=== PATIENT | female | born 1985 | race African-American/Black ===

== ENCOUNTER 2017-10-19 09:15 | Emergency (ER) | payer SELFPAY ==
[~2017-10-19] VITALS: Ht 160 cm; Wt 149.5 kg
[~2017-10-19 09:15] MED LIST: BACTRIM DS1 TAB PO; LORTAB 5/3255 MG PO
[2017-10-19] MEDS ORDERED: DOXYCYCL HYC100 MG PO (10:24)
[2017-10-19 10:39] VITALS: BP 132/83
== END 2017-10-19 10:40 | disposition home or self-care (01) | DRG 603 ==
LOC: ED 09:15
DX: L03.012 Cellulitis of left finger (principal); F17.290 Nicotine dependence, other tobacco product, uncomplicated

== ENCOUNTER 2018-03-19 11:06 | Emergency (ER) | payer SELFPAY ==
[~2018-03-19] VITALS: Ht 160 cm; Wt 153.6 kg
[~2018-03-19 11:06] MED LIST changes: +DOXYCYCL HYC100 MG PO
[2018-03-19] MEDS ORDERED: DOXYCYC MONO100 M2 PO (11:33)
[2018-03-19 12:04] VITALS: BP 154/93
== END 2018-03-19 12:12 | disposition home or self-care (01) | DRG 153 ==
LOC: ED 11:06
DX: J06.9 Acute upper respiratory infection, unspecified (principal); R05 Cough; R09.81 Nasal congestion; F17.290 Nicotine dependence, other tobacco product, uncomplicated; R53.83 Other fatigue

== ENCOUNTER 2020-02-12 12:05 | Emergency (ER) | payer SELFPAY ==
[~2020-02-12] VITALS: Ht 160 cm; Wt 136.0 kg
[~2020-02-12 12:05] MED LIST changes: +DOXYCYC MONO100 M2 PO
[2020-02-12 13:21] LABS: HEMATOCRIT 38.4 % (37.0-47.0); HEMOGLOBIN 12.1 g/dl (12.0-16.0); IMMATURE GRANULOCYTES 0.3 % (0.0-5.0); MEAN CELL VOLUME 91.4 fL CALC (80.0-100.0); MEAN CORPUSCULAR HGB 28.8 pG CALC (26.0-32.0); MEAN CORPUSCULAR HGB CONC 31.5 g/dL CAL (32.0-36.0); NEUT# 4.96 thou/uL (2.00-7.15); RED BLOOD COUNT 4.2 mill/uL (4.20-5.60); RED CELL DISTRI WIDTH 14.2 % (11.5-15.5)
[2020-02-12 13:34] LABS: HCG SERUM/URINE (NEG/POS) NEGATIVE (NEGATIVE)
[2020-02-12 13:38] LABS: ALBUMIN 4.1 g/dL (3.2-5.0); ALKALINE PHOSPHATASE 71 u/l (38-126); ANION GAP 13 (6-22 (CALC)); BILIRUBIN, TOTAL 0.4 mg/dL (0.0-1.4); BUN 10 mg/dL (7-17); BUN/CREATININE RATIO 13 (12-20 (CALC)); CARBON DIOXIDE 23 mmol/l (22-30); CHLORIDE 111 mmol/l (95-108); CREATININE 0.8 mg/dL (0.5-1.0); GFR > 60 ML/MIN (>=60 (CALC)); GFR FOR AFR.AMER. > 60 ML/MIN (>=60 (CALC)); LIPASE 64 u/l (23-300); SGOT/AST 29 u/l (14-36); SODIUM 143 mmol/l (137-146); TOTAL PROTEIN 7.9 g/dL (6.3-8.2)
[2020-02-12] MEDS ORDERED: ALBUTEROL108 MCG/AC IN (13:42)
[2020-02-12 16:59] LABS: URINE BILIRUBIN - DIPSTICK NEGATIVE (NEGATIVE); URINE BLOOD DIPSTICK NEGATIVE (NEGATIVE); URINE COLOR YELLOW; URINE GLUCOSE - DIPSTICK NEGATIVE (NEGATIVE); URINE KETONE NEGATIVE (NEGATIVE); URINE LEUK ESTERASE NEGATIVE (NEGATIVE); URINE NITRITE - DIPSTICK NEGATIVE (Negative); URINE PROTEIN - DIPSTICK NEGATIVE (NEG-TRACE); URINE UROBILINOGEN - DIPSTICK 0.2 E.U./dL (0.2)
[2020-02-12] MEDS ORDERED: ALBUTEROL SUL0.083 % IN (17:43)
[2020-02-12] MEDS ORDERED: NEBULIZE2 XX (17:43)
[2020-02-12 18:05] VITALS: BP 137/66
== END 2020-02-12 18:11 | disposition home or self-care (01) | DRG 313 ==
LOC: ED 12:05
PROVIDERS: Family Medicine
DX: R07.89 Other chest pain (principal); J45.909 Unspecified asthma, uncomplicated; F17.200 Nicotine dependence, unspecified, uncomplicated; Z20.828 Contact with and (suspected) exposure to other viral communicable diseases

== ENCOUNTER 2020-03-26 18:50 | Emergency (ER) | payer SELFPAY ==
[~2020-03-26] VITALS: Ht 160 cm; Wt 131.0 kg
[~2020-03-26 18:50] MED LIST changes: +ALBUTEROL SUL0.083 % IN; +ALBUTEROL108 MCG/AC IN; +NEBULIZE2 XX
[2020-03-26] MEDS ORDERED: LISINOPRIL20 MG PO ×2 (20:07→20:19)
[2020-03-26] MEDS ORDERED: PAROXETINE20 MG PO (20:19)
[2020-03-26 20:57] VITALS: BP 116/65
== END 2020-03-26 21:01 | disposition home or self-care (01) | DRG 881 ==
LOC: ED 18:50
DX: F32.9 Major depressive disorder, single episode, unspecified (principal); I10 Essential (primary) hypertension; J45.909 Unspecified asthma, uncomplicated; F41.9 Anxiety disorder, unspecified; F17.200 Nicotine dependence, unspecified, uncomplicated; Z63.4 Disappearance and death of family member

== ENCOUNTER 2020-11-12 10:49 | Emergency (ER) | payer SELFPAY ==
[~2020-11-12 10:49] MED LIST changes: +LISINOPRIL20 MG PO; +PAROXETINE20 MG PO
[2020-11-12] MEDS ORDERED: AFRIN NASAL SP0.05 % NAB (12:41)
[2020-11-12] MEDS ORDERED: TESSALON PERLE100 MG PO (12:41)
[2020-11-12 12:48] VITALS: BP 160/77
== END 2020-11-12 12:54 | disposition home or self-care (01) | DRG 153 ==
LOC: ED 10:49
DX: J06.9 Acute upper respiratory infection, unspecified (principal); I10 Essential (primary) hypertension; J45.909 Unspecified asthma, uncomplicated; F41.9 Anxiety disorder, unspecified; F17.210 Nicotine dependence, cigarettes, uncomplicated; Z20.822 Contact with and (suspected) exposure to COVID-19

== ENCOUNTER 2021-04-25 09:29 | Emergency (ER) | payer SELFPAY ==
[~2021-04-25] VITALS: Ht 160 cm; Wt 131.0 kg
[~2021-04-25 09:29] MED LIST changes: +AFRIN NASAL SP0.05 % NAB; +TESSALON PERLE100 MG PO
[2021-04-25] MEDS ORDERED: HYDROCO/APAP1 TA9 PO (10:40)
[2021-04-25] MEDS ORDERED: CLEOCIN300 MG PO (10:40)
[2021-04-25 10:55] VITALS: BP 184/80
== END 2021-04-25 10:55 | disposition home or self-care (01) | DRG 159 ==
LOC: ED 09:29
DX: K04.7 Periapical abscess without sinus (principal); K02.9 Dental caries, unspecified; I10 Essential (primary) hypertension; J45.909 Unspecified asthma, uncomplicated; F41.9 Anxiety disorder, unspecified; F17.200 Nicotine dependence, unspecified, uncomplicated

== ENCOUNTER 2021-08-06 18:37 | Emergency (ER) | payer SELFPAY ==
[~2021-08-06] VITALS: Ht 160 cm; Wt 300.0 kg
[~2021-08-06 18:37] MED LIST changes: +CLEOCIN300 MG PO; +HYDROCO/APAP1 TA9 PO
[2021-08-06 19:20] VITALS: BP 171/105
[2021-08-06] MEDS ORDERED: NAPROXEN500 MG PO (19:51)
[2021-08-06] MEDS ORDERED: PREDNISONE20 MG PO (19:51)
[2021-08-06 20:15] VITALS: BP 171/105
== END 2021-08-06 20:15 | disposition home or self-care (01) | DRG 556 ==
LOC: ED 18:37
DX: M25.572 Pain in left ankle and joints of left foot (principal); I10 Essential (primary) hypertension; J45.909 Unspecified asthma, uncomplicated; F41.9 Anxiety disorder, unspecified; F17.200 Nicotine dependence, unspecified, uncomplicated

== ENCOUNTER 2021-11-22 11:57 | Emergency (ER) | payer SELFPAY ==
[~2021-11-22] VITALS: Ht 160 cm; Wt 136.4 kg
[~2021-11-22 11:57] MED LIST changes: +NAPROXEN500 MG PO; +PREDNISONE20 MG PO
[2021-11-22 12:04] VITALS: BP 171/102
[2021-11-22 13:19] LABS: HEMATOCRIT 37.7 % (37.0-47.0); HEMOGLOBIN 12.2 g/dl (12.0-16.0); IMMATURE GRANULOCYTES 0.3 % (0.0-5.0); MEAN CORPUSCULAR HGB 29.1 pG CALC (26.0-32.0); MEAN CORPUSCULAR HGB CONC 32.4 g/dL CAL (32.0-36.0); NEUT# 3.76 thou/uL (2.00-7.15); RED BLOOD COUNT 4.19 mill/uL (4.20-5.60); RED CELL DISTRI WIDTH 14.7 % (11.5-15.5)
[2021-11-22 13:33] LABS: ALBUMIN 4.1 g/dL (3.2-5.0); ALKALINE PHOSPHATASE 83 u/l (38-126); ANION GAP 12 (6-22 (CALC)); BUN 16 mg/dL (7-17); BUN/CREATININE RATIO 26 (12-20 (CALC)); CARBON DIOXIDE 25 mmol/l (22-30); CHLORIDE 106 mmol/l (95-108); CREATININE 0.6 mg/dL (0.5-1.0); GFR FOR AFR.AMER. > 60 ML/MIN (>=60 (CALC)); GFR OTHER RACES > 60 ML/MIN (>=60 (CALC)); POTASSIUM 4.1 mmol/l (3.5-5.1); SGOT/AST 27 u/l (14-36); SODIUM 139 mmol/l (137-146); TOTAL PROTEIN 7.7 g/dL (6.3-8.2)
[2021-11-22 13:34] LABS: BILIRUBIN, TOTAL 0.2 mg/dL (0.0-1.4)
[2021-11-22] MEDS ORDERED: IBUPROFEN600 MG PO (13:54)
[2021-11-22] MEDS ORDERED: ALL DAY10 MG PO (13:54)
[2021-11-22] MEDS ORDERED: PREDNISONE20 MG PO (13:54)
[2021-11-22 13:59] VITALS: BP 171/102
== END 2021-11-22 14:09 | disposition home or self-care (01) | DRG 916 ==
LOC: ED 11:57
PROVIDERS: Family Medicine
DX: T78.49XA Other allergy, initial encounter (principal)

== ENCOUNTER 2022-01-22 15:53 | Emergency (ER) | payer SELFPAY ==
[~2022-01-22] VITALS: Ht 160 cm; Wt 90.9 kg
[~2022-01-22 15:53] MED LIST changes: +ALL DAY10 MG PO; +IBUPROFEN600 MG PO
[2022-01-22 16:31] VITALS: BP 216/100
[2022-01-22 17:00] VITALS: BP 174/101
[2022-01-22] MEDS ORDERED: NAPROXEN500 MG PO (17:46)
[2022-01-22] MEDS ORDERED: COLCHICINE0.6 M2 PO (17:46)
[2022-01-22] MEDS ORDERED: MEDDOSEPAK PO (17:46)
[2022-01-22 18:30] VITALS: BP 174/101
== END 2022-01-22 18:18 | disposition home or self-care (01) | DRG 554 ==
LOC: ED 15:53
DX: M10.9 Gout, unspecified (principal)

== ENCOUNTER 2023-11-20 13:00 | Emergency (ER) | payer SELFPAY ==
[~2023-11-20] VITALS: Ht 160 cm; Wt 136.0 kg
[~2023-11-20 13:00] MED LIST changes: +COLCHICINE0.6 M2 PO; +MEDDOSEPAK PO
[2023-11-20 13:07] VITALS: BP 174/104
[2023-11-20 13:09] VITALS: BP 174/104
[2023-11-20] MEDS ORDERED: MOTRIN800 MG PO (13:10)
[2023-11-20] MEDS ORDERED: HYDROcodone 5 MG/Acetaminophen 325 MG/COMBO PO ONE (13:10)
[2023-11-20] MEDS ORDERED: TRAMADOL HYDROC50 M1 PO (13:10)
[2023-11-20] MEDS ORDERED: AMOX/K CLAV875 M1 PO (13:10)
[2023-11-20] MEDS ORDERED: [UNRECOGNIZED DRUG - OTHER] PO (13:14)
[2023-11-20 13:15] VITALS: BP 161/100
== END 2023-11-20 13:20 | disposition home or self-care (01) | DRG 159 ==
LOC: ED 13:00
DX: K04.7 Periapical abscess without sinus (principal); K02.9 Dental caries, unspecified; S02.5XXA Fracture of tooth (traumatic), initial encounter for closed fracture; I10 Essential (primary) hypertension; J45.909 Unspecified asthma, uncomplicated; F41.9 Anxiety disorder, unspecified; F17.200 Nicotine dependence, unspecified, uncomplicated; X58.XXXA Exposure to other specified factors, initial encounter

== ENCOUNTER 2023-11-27 10:50 | Emergency (ER) | payer SELFPAY ==
[2023-11-27] VITALS (7 sets, daily range): BP systolic 135–184; BP diastolic 70–104
[~2023-11-27] VITALS: Ht 160 cm; Wt 136.0 kg
[~2023-11-27 10:50] MED LIST changes: +AMOX/K CLAV875 M1 PO; +MOTRIN800 MG PO; +TRAMADOL HYDROC50 M1 PO; +[UNRECOGNIZED DRUG - OTHER] PO
[2023-11-27 11:20] LABS: BASO% 0.4 % (0-3); EOS% 3.8 % (0-8); HEMATOCRIT 37.7 % (37.0-47.0); HEMOGLOBIN 11.8 g/dl (12.0-16.0); IMMATURE GRANULOCYTES 0.3 % (0.0-5.0); LYMPH% 32.2 % (15-41); MEAN CORPUSCULAR HGB 29.7 pG CALC (26.0-32.0); MEAN CORPUSCULAR HGB CONC 31.3 g/dL CAL (32.0-36.0); MONO% 4.5 % (2-13); NEUT# 5.35 thou/uL (2.00-7.15); NEUT% 58.8 % (42-76); RED BLOOD COUNT 3.97 mill/uL (4.20-5.60)
[2023-11-27 11:36] LABS: ALBUMIN 4.3 g/dL (3.2-5.0); BILIRUBIN, TOTAL 0.4 mg/dL (0.02-1.3); CREATININE 0.7 mg/dL (0.5-1.0); POTASSIUM 3.3 mmol/l (3.5-5.1); TOTAL PROTEIN 8.1 g/dL (6.3-8.2)
[2023-11-27] MEDS ORDERED: ZPAK PO (12:25)
[2023-11-27] MEDS ORDERED: CHERATUSSIN PO (12:41)
== END 2023-11-27 13:03 | disposition home or self-care (01) | DRG 203 ==
LOC: ED 10:50
PROVIDERS: Family Medicine
DX: A37.00 Whooping cough due to Bordetella pertussis without pneumonia (principal); J45.909 Unspecified asthma, uncomplicated; E66.01 Morbid (severe) obesity due to excess calories; F41.9 Anxiety disorder, unspecified; I10 Essential (primary) hypertension; F17.200 Nicotine dependence, unspecified, uncomplicated; Z20.822 Contact with and (suspected) exposure to COVID-19